=== PATIENT | female | born 1975 | race Hispanic/Latino ===

== ENCOUNTER → 2017-11-20 | Outpatient (CLI) | payer BC | LOC: MAMMO 15:00 | PROVIDERS: ATTEND Obstetrics & Gynecology | DX: Z12.31 Encounter for screening mammogram for malignant neoplasm of breast (principal) | CPT/HCPCS: 77067 ==

== ENCOUNTER → 2018-09-18 | Outpatient (CLI) | payer BC ==
[~2018-09-18] MED LIST: LEVOTHYROXINE88 MCG PO
[2018-09-18 14:53] LABS: ALBUMIN 4.6 g/dL (3.5-5.0); BILIRUBIN,DIRECT 0.2 mg/dL (0.0-0.5)
== END ==
LOC: LAB 14:01
PROVIDERS: ATTEND Podiatrist Foot & Ankle Surgery
DX: B35.1 Tinea unguium (principal)
CPT/HCPCS: 36415; 80076

== ENCOUNTER → 2019-07-01 | Outpatient (CLI) | payer BC | LOC: MAMMO 12:29 | PROVIDERS: ATTEND Physician Assistant | DX: Z12.31 Encounter for screening mammogram for malignant neoplasm of breast (principal) | CPT/HCPCS: 77067 ==

== ENCOUNTER 2019-12-17 15:00 | Outpatient (RCR) | payer BC | END 2019-12-19 | LOC: OT 15:00 | PROVIDERS: ATTEND Plastic Surgery | DX: M79.641 Pain in right hand (principal); S60.921D Unspecified superficial injury of right hand, subsequent encounter; R53.1 Weakness ==

== ENCOUNTER → 2020-02-23 | Outpatient (CLI) | payer OTHER ==
[~2020-02-23] MED LIST changes: +COVID-19 VACC, MRNA(MODERNA)/PF 100 MCG/0.5 ML VIAL IM ONE
== END ==
LOC: VACCPMC 09:00
DX: Z23 Encounter for immunization (principal); Z20.822 Contact with and (suspected) exposure to COVID-19

== ENCOUNTER → 2020-03-28 | Outpatient (CLI) | payer OTHER | END | DRG 951 | LOC: VACCPMC 09:50 | DX: Z23 Encounter for immunization (principal); Z20.822 Contact with and (suspected) exposure to COVID-19 | CPT/HCPCS: 0012A; 91301 ==

== ENCOUNTER → 2020-05-18 | Outpatient (CLI) | payer OTHER ==
[~2020-05-18] MED LIST changes: -COVID-19 VACC, MRNA(MODERNA)/PF 100 MCG/0.5 ML VIAL IM ONE
== END ==
LOC: US 10:06
PROVIDERS: ATTEND Obstetrics & Gynecology
DX: N93.8 Other specified abnormal uterine and vaginal bleeding (principal)
CPT/HCPCS: 76830; 76856

== ENCOUNTER → 2020-06-01 | Outpatient (CLI) | payer OTHER ==
[~2020-06-01] MED LIST changes: +DIPHENHYDRAMINE HCL INJ 50 MG/ML VIAL IV ONE; +DIPHENHYDRAMINE HCL INJ 50 MG/ML VIAL ONE; +GADOBENATE DIMEGLUMINE 1 ML IV ONE; +SODIUM CHLORIDE 0.9% 50ML 50 ML ONE
== END ==
LOC: MRI 13:39
PROVIDERS: ATTEND Obstetrics & Gynecology
DX: N88.9 Noninflammatory disorder of cervix uteri, unspecified (principal)
CPT/HCPCS: 72197; A9577; J1200

== ENCOUNTER → 2020-07-27 | Outpatient (CLI) | payer OTHER ==
[~2020-07-27] MED LIST changes: -DIPHENHYDRAMINE HCL INJ 50 MG/ML VIAL IV ONE; -DIPHENHYDRAMINE HCL INJ 50 MG/ML VIAL ONE; -GADOBENATE DIMEGLUMINE 1 ML IV ONE; -SODIUM CHLORIDE 0.9% 50ML 50 ML ONE
== END ==
LOC: US 13:28
PROVIDERS: ATTEND Student in an Organized Health Care Education/Training Program
DX: R10.11 Right upper quadrant pain (principal)
CPT/HCPCS: 76700

== ENCOUNTER → 2020-08-19 | Outpatient (CLI) | payer OTHER ==
[~2020-08-19] MED LIST changes: +LARIN 24 FE 11 EACH PO
== END ==
LOC: NM 10:52
PROVIDERS: ATTEND Internal Medicine Gastroenterology
DX: R10.11 Right upper quadrant pain (principal)
CPT/HCPCS: 78227; 81025; A9537

== ENCOUNTER → 2020-08-27 | Day surgery (SDC) | payer OTHER ==
[~2020-08-27] MED LIST changes: +FENTANYL CITRATE/PF 100MCG/2 ML INJ ONE; +LIDOCAINE HCL 2% LOCAL INJ 5 ML SDV VIAL INJ ONE; +MIDAZOLAM HCL 2 MG/2 ML VIAL ONE; +PROPOFOL IV EMULSION 10 MG/ML 20 ML VIAL ONE
[2020-08-27 09:15] VITALS: BP 96/70
== END | disposition home or self-care (01) ==
LOC: OR 06:00
PROVIDERS: ATTEND Internal Medicine Gastroenterology
DX: K29.00 Acute gastritis without bleeding (principal); K29.50 Unspecified chronic gastritis without bleeding; B96.81 Helicobacter pylori [H. pylori] as the cause of diseases classified elsewhere; E03.9 Hypothyroidism, unspecified; K20.90 Esophagitis, unspecified without bleeding; Z68.29 Body mass index [BMI] 29.0-29.9, adult
CPT/HCPCS: 43239; 81025; C9113; J2001; J2250; J2704; J3010

== ENCOUNTER → 2020-09-13 | Outpatient (CLI) | payer OTHER ==
[~2020-09-13] MED LIST changes: -FENTANYL CITRATE/PF 100MCG/2 ML INJ ONE; -LIDOCAINE HCL 2% LOCAL INJ 5 ML SDV VIAL INJ ONE; -MIDAZOLAM HCL 2 MG/2 ML VIAL ONE; -PROPOFOL IV EMULSION 10 MG/ML 20 ML VIAL ONE
== END ==
LOC: US 14:59
PROVIDERS: ATTEND Obstetrics & Gynecology
DX: Z12.31 Encounter for screening mammogram for malignant neoplasm of breast (principal); D25.9 Leiomyoma of uterus, unspecified; N83.201 Unspecified ovarian cyst, right side
CPT/HCPCS: 76830; 76856; 77067

== ENCOUNTER → 2020-10-10 | Outpatient (CLI) | payer OTHER ==
[2020-10-10 15:39] LABS: BASOPHILS % 0.7 % (0.0-1.0); EOSINOPHILS % 0.7 % (0.0-6.0); HEMATOCRIT 39.9 % (34.2-44.1); HEMOGLOBIN 12.9 g/dL (12.0-16.0); LYMPHOCYTES # (AUTO) 2.5 (1.0-3.2); LYMPHOCYTES % 43.5 % (18.0-39.1); MEAN CORPUSCULAR HEMOGLOBIN 29.8 pg (28-32); MEAN CORPUSCULAR HGB CONC 32.3 g/dL (31-35); MEAN CORPUSCULAR VOLUME 92.1 fL (81-99); MONOCYTES # (AUTO) 0.4 (0.2-0.8); MONOCYTES % 6.4 % (4.4-11.3); NEUTROPHILS # (AUTO) 2.7 (2.1-6.9); NEUTROPHILS % 48.3 % (38.7-80.0); PLATELET COUNT 194 x10e3/uL (140-360); RED BLOOD COUNT 4.33 x10e6/uL (3.6-5.1); RED CELL DISTRIBUTION WIDTH 13.5 % (11.7-14.4)
[2020-10-10 15:51] LABS: CLARITY,URINE CLEAR (CLEAR); COLOR,URINE YELLOW (YELLOW)
[2020-10-10 15:52] LABS: KETONES,URINE NEGATIVE (NEGATIVE); LEUKOCYTE ESTERASE ,URINE NEGATIVE (NEGATIVE); NITRITE,URINE NEGATIVE (NEGATIVE); PROTEIN,URINE DIPSTICK NEGATIVE (NEGATIVE); URINE UROBILINOGEN 0.2 mg/dL (0.2 - 1)
[2020-10-10 15:58] LABS: ALBUMIN 4.2 g/dL (3.5-5.0); ANION GAP 16.2 mmol/L (8-16); CALCIUM 9.1 mg/dL (8.4-10.2); CREATININE, SERUM 0.88 mg/dL (0.57-1.11); POTASSIUM 4.2 mmol/L (3.5-5.1)
[2020-10-10 15:59] LABS: ALBUMIN/GLOBULIN RATIO 1.1 (0.8-2.0)
[2020-10-10 16:04] LABS: HCG,QUANTITATIVE 1.24 mIU/mL (0-10)
[2020-10-10 16:07] LABS: HIV 1&2 AB SCREEN NON-REACTIVE (NONREACTIVE)
[2020-10-10 16:12] LABS: INR 1.06
[2020-10-10 16:13] LABS: PARTIAL THROMBOPLASTIN TIME 25.2 seconds (23.8-35.5)
== END ==
LOC: RAD 15:09
PROVIDERS: ATTEND Student in an Organized Health Care Education/Training Program
DX: Z01.818 Encounter for other preprocedural examination (principal)
CPT/HCPCS: 36415; 80053; 81003; 84702; 85025; 85610; 85730; 86850; 86900; 87390; 93005; G0433; G0435; U0002

== ENCOUNTER → 2020-12-21 | Outpatient (CLI) | payer OTHER ==
[~2020-12-21] MED LIST changes: +COVID-19 VACC, MRNA(MODERNA)/PF 100 MCG/0.5 ML VIAL IM ONE
== END ==
LOC: VACCPMC 09:44
DX: Z23 Encounter for immunization (principal); Z20.822 Contact with and (suspected) exposure to COVID-19
CPT/HCPCS: 91301

== ENCOUNTER → 2021-11-13 | Outpatient (CLI) | payer BC ==
[~2021-11-13] MED LIST changes: -COVID-19 VACC, MRNA(MODERNA)/PF 100 MCG/0.5 ML VIAL IM ONE; +IOPAMIDOL 370 MG/ML 100 ML INFUS..BTL INJ ONE; +SODIUM CHLORIDE 0.9% 100 ML ONE
== END ==
LOC: CT 15:40
PROVIDERS: ATTEND Urology
DX: R31.21 Asymptomatic microscopic hematuria (principal)
CPT/HCPCS: 74178; 81025; J7050; Q9967

== ENCOUNTER → 2022-01-10 | Outpatient (CLI) | payer BC ==
[~2022-01-10] MED LIST changes: -IOPAMIDOL 370 MG/ML 100 ML INFUS..BTL INJ ONE; -SODIUM CHLORIDE 0.9% 100 ML ONE
[2022-01-10 07:55] LABS: BASOPHILS % 0.6 % (0.0-1.0); EOSINOPHILS # (AUTO) 0.1 (0.0-0.4); EOSINOPHILS % 1.7 % (0.0-6.0); HEMATOCRIT 38.6 % (34.2-44.1); LYMPHOCYTES # (AUTO) 2.1 (1.0-3.2); LYMPHOCYTES % 44.9 % (18.0-39.1); MEAN CORPUSCULAR HGB CONC 33.7 g/dL (31-35); MEAN CORPUSCULAR VOLUME 91.9 fL (81-99); MONOCYTES # (AUTO) 0.2 (0.2-0.8); MONOCYTES % 4.2 % (4.4-11.3); NEUTROPHILS # (AUTO) 2.3 (2.1-6.9); NEUTROPHILS % 48.4 % (38.7-80.0); PLATELET COUNT 211 x10e3/uL (140-360); RED CELL DISTRIBUTION WIDTH 12.6 % (11.7-14.4)
[2022-01-10 08:02] LABS: CLARITY,URINE CLEAR (CLEAR); COLOR,URINE YELLOW (YELLOW); KETONES,URINE NEGATIVE (NEGATIVE); LEUKOCYTE ESTERASE ,URINE NEGATIVE (NEGATIVE); NITRITE,URINE NEGATIVE (NEGATIVE); PROTEIN,URINE DIPSTICK NEGATIVE (NEGATIVE); URINE UROBILINOGEN 0.2 mg/dL (0.2 - 1)
[2022-01-10 08:09] LABS: BACTERIA,URINE FEW /HPF; EPITHELIAL CELLS,URINE MANY /LPF; WBC,URINE (MAN) 0-5 /HPF (0-5)
[2022-01-10 08:32] LABS: INR 0.97; PROTHROMBIN TIME 13.8 seconds (11.9-14.5)
[2022-01-10 08:33] LABS: PARTIAL THROMBOPLASTIN TIME 27.2 seconds (23.8-35.5)
[2022-01-10 08:41] LABS: ALANINE AMINOTRANSFERASE 19 IU/L (0-55); ALBUMIN 4.6 g/dL (3.5-5.0); ALBUMIN/GLOBULIN RATIO 1.4 (0.8-2.0); ALKALINE PHOSPHATASE 39 IU/L (40-150); ANION GAP 15.1 mmol/L (8-16); BLOOD UREA NITROGEN 15 mg/dL (7-26); BUN/CREATININE RATIO 19 (6-25); CALCIUM 9.2 mg/dL (8.4-10.2); CARBON DIOXIDE 23 mmol/L (22-29); CHLORIDE 106 mmol/L (98-107); CREATININE, SERUM 0.81 mg/dL (0.57-1.11); GLUCOSE 86 mg/dL (74-118); POTASSIUM 4.1 mmol/L (3.5-5.1); SODIUM 140 mmol/L (136-145)
[2022-01-10 10:01] LABS: HIV 1&2 AB SCREEN NON-REACTIVE (NONREACTIVE)
== END ==
LOC: LAB 07:42
PROVIDERS: ATTEND Family Medicine
DX: Z01.818 Encounter for other preprocedural examination (principal)
CPT/HCPCS: 0223U; 36415; 80053; 81001; 81025; 85025; 85610; 85730; 87086; 87390; G0433; G0435

== ENCOUNTER → 2022-04-06 | Outpatient (CLI) | payer BC | LOC: RAD 11:39 | PROVIDERS: ATTEND Student in an Organized Health Care Education/Training Program | DX: M25.522 Pain in left elbow (principal); M77.12 Lateral epicondylitis, left elbow ==

== ENCOUNTER 2022-05-01 14:41 | Outpatient (RCR) | payer BC | END 2022-05-18 | LOC: OT 14:41 | PROVIDERS: ATTEND Student in an Organized Health Care Education/Training Program | DX: M25.522 Pain in left elbow (principal) ==

== ENCOUNTER 2022-06-07 14:30 | Outpatient (RCR) | payer BC | END 2022-06-17 | LOC: OT 14:30 | PROVIDERS: ATTEND Student in an Organized Health Care Education/Training Program | DX: M25.522 Pain in left elbow (principal) ==

== ENCOUNTER 2022-06-19 08:35 | Outpatient (RCR) | payer BC | END 2022-07-18 | LOC: OT 08:35 | PROVIDERS: ATTEND Student in an Organized Health Care Education/Training Program | DX: M25.522 Pain in left elbow (principal) ==

== ENCOUNTER → 2022-07-18 | Outpatient (CLI) | payer BC | LOC: RAD 14:34 | PROVIDERS: ATTEND Student in an Organized Health Care Education/Training Program | DX: M25.512 Pain in left shoulder (principal) ==